=== PATIENT | female | born 1930 | race Caucasian/White ===

== ENCOUNTER → 2017-01-26 | Outpatient (CLI) | payer MEDICARE ==
[~2017-01-26] MED LIST: ATENOLOL PO; CARDIZEM PO; DICLOFENAC PO; KCL PO; MAXZIDE 75/50 T1 TAB PO; SYNTHROID PO; ZOCOR PO
--- NOTE | ~2017-01-26 | CT4 ---
[facility] A Service [facility] RADIOLOGY TEXT RESULTS PATIENT: ZURI BEACH LOCATION: [facility] : 34 UNIT #: [id number] AGE: [address]: Andre Marquez MD SEX: F ORDER DR: [id number] [facility]. [place], [place] [address] [id number] O MR#: [id number] Acc #: [id number] NAME: ZURI BEACH : 1930 SEX: F STUDY DATE/TIME: 01/26/2017 11:30 UNIT: [facility] ROOM: STUDY DESCRIPTION: CT Abd and Pelv Wo Cont Attending Physician: Andre Marquez M.D. Referring Physician: Andre Marquez M.D. Ordering Physician: Andre Marquez M.D. Primary Care Physician: Andre Marquez M.D. MEDICAL IMAGING REPORT This report is preliminary unless electronic signature is present EXAM CT abdomen and pelvis INDICATIONS Left lower quadrant abdominal pain. 3-week duration. TECHNIQUE CT of the abdomen and pelvis with oral contrast only. Coronal and sagittal reconstructions were obtained. This CT exam was performed with one or more of the following radiation dose reduction techniques: automatic control, adjustment of mA and/or kV according to patient size, and iterative reconstruction. COMPARISON CT abdomen 01/07/2007. FINDINGS ABDOMEN: Noncontrast evaluation of the liver, gallbladder, spleen, and adrenal glands are within normal limits. 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 There is bilateral renal atrophy, left greater than right. There is a benign cyst off the superior pole right kidney. There are 2 nonobstructing right renal calculi measuring 1-2 mm in diameter. No hydronephrosis. The bowel is not dilated. The appendix is presumed surgically absent. There is no inflammatory change adjacent to the cecum. No enlarged retroperitoneal or mesenteric lymph nodes. PELVIS: The uterus is surgically absent. The left ovary is normal. Bladder is decompressed. No acute osseous abnormalities. [facility] A Service [facility] RADIOLOGY TEXT RESULTS PATIENT: ZURI BEACH LOCATION: [facility] : 34 UNIT #: [id number] AGE: [address]: Andre Marquez MD SEX: F ORDER DR: IMPRESSION 1. No acute findings in the abdomen or pelvis to account for the patient's left lower quadrant abdominal pain. 2. Renal atrophy, left greater than right Dictated by... Justin Kc M.D. THIS IS AN ELECTRONICALLY VERIFIED REPORT Justin Kc M.D. at 01/30/2017 9:24 AM RPMary/bree TD: 01/27/2017 03:28 JOB #: [id number] MEDICAL IMAGING REPORT Page 1 of 1 COPY
== END | disposition home or self-care (01) ==
LOC: CCAT 01-24 10:20
DX: R10.32 Left lower quadrant pain (principal); N26.1 Atrophy of kidney (terminal)
CPT/HCPCS: 74176